=== PATIENT | female | born 1950 | race Native Hawaiian/Other Pacific Islander ===

== ENCOUNTER 2017-05-29 11:40 | Emergency (ER) | payer MEDICAID, MEDICARE ==
[2017-05-29 11:52] VITALS: BMI 26.6
[2017-05-29 11:57] VITALS: RESP 16; TEMP 98; O2SAT 98
[2017-05-29] MEDS ORDERED: Naproxen 550 mg Tab PO STA (12:05)
--- NOTE | 2017-05-29 12:08 | C.PDOC ---
History Of Present Illness 67 yr old female with PMHx of Parkinson's Disease, presents to the ER stating 5 days ago her son gave her a very tight hug and she heard a crack in her chest and now has pain in the right mid chest. Patient states the pain is constant and worsened with deep breathing. Denies any other injures, SOB, back pain, weakness or numbness. Time Seen by Provider: 05/29/17 11:55 Chief Complaint (Nursing): Rib Injury History Per: Patient History/Exam Limitations: no limitations Onset/Duration Of Symptoms: Days (5 days ago) Past Medical History Reviewed: Historical Data, Nursing Documentation, Vital Signs Vital Signs: Last Vital Signs Temp 98.0 F 05/29/17 11:54 Pulse 99 H 05/29/17 11:54 Resp 16 05/29/17 11:54 BP 162/93 H 05/29/17 11:54 Pulse Ox 98 05/29/17 12:54 - Medical History PMH: Parkinson's Disease Surgical History: Appendectomy Family History: States: No Known Family Hx - Social History Hx Alcohol Use: No Hx Substance Use: No - Immunization History Hx Tetanus Toxoid Vaccination: No Hx Influenza Vaccination: No Hx Pneumococcal Vaccination: No Review Of Systems Except As Marked, All Systems Reviewed And Found Negative. Cardiovascular: Positive for: Other ((+) Pain to the right mid chest. ) Respiratory: Negative for: Shortness of Breath Musculoskeletal: Negative for: Back Pain Neurological: Negative for: Weakness, Numbness Physical Exam - Physical Exam Appears: Non-toxic, No Acute Distress Skin: Warm, Dry, No Rash Head: Atraumatic, Normacephalic Eye(s): bilateral: Normal Inspection Oral Mucosa: Moist Neck: Normal ROM, No Midline Cervical Tenderness, No Paracervical Tenderness, Supple Chest: Symmetrical, Tenderness (Mild right mid chest wall tenderness. ), No Ecchymosis, No Subcutaneous Emphysema Cardiovascular: Rhythm Regular, No Friction Rub, No Murmur Respiratory: Normal Breath Sounds, No Rales, No Rhonchi, No Stridor, No Wheezing Gastrointestinal/Abdominal: Soft, No Tenderness, No Guarding, No Rebound Back: Normal Inspection, No CVA Tenderness, No Vertebral Tenderness, No Paraspinal Tenderness Extremity: Normal ROM, No Swelling Neurological/Psych: Oriented x3, Normal Speech, Normal Motor Gait: Steady ED Course And Treatment O2 Sat by Pulse Oximetry: 98 (RA ) Pulse Ox Interpretation: Normal - Radiology CXR: Viewed By Me, Read By Radiologist CXR Interpretation: Yes: No Acute Disease Medical Decision Making Medical Decision Making: PLAN: * CXR * Naproxen PO * Flexeril PO On re-exam, the patient reports improvement of symptoms. Lungs are CTA and heart is RRR. Abdomen is soft, non-tender and patient is tolerating PO well. Ambulatory in the ED with steady gait. Followup with the medical doctor within 1 -2 days. Return if worsened. Disposition - Disposition Referrals: Reggie Wright [Staff Provider] - Disposition: HOME/ ROUTINE Disposition Time: 13:08 Condition: GOOD Additional Instructions: Followup with the medical doctor within 1-2 days. Return if worsened. 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 - Scribe Statement The provider has reviewed the documentation as recorded by the Scribe Kiersten Ayon All medical record entries made by the Scribe were at my direction and personally dictated by me. I have reviewed the chart and agree that the record accurately reflects my personal performance of the history, physical exam, medical decision making, and the department course for this patient. I have also personally directed, reviewed, and agree with the discharge instructions and disposition.
[2017-05-29] MEDS ORDERED: Naproxen 550 mg Tab PO ONE (12:09)
--- NOTE | 2017-05-29 12:38 | RAD ---
HISTORY: chest pain, pleuritic pain COMPARISON: 08/11/2016 TECHNIQUE: Chest PA and lateral FINDINGS: LUNGS: No active pulmonary disease. PLEURA: No significant pleural effusion identified. No pneumothorax apparent. CARDIOVASCULAR: Normal. OSSEOUS STRUCTURES: No significant abnormalities. VISUALIZED UPPER ABDOMEN: Normal. OTHER FINDINGS: None. IMPRESSION: No active disease.
[2017-05-29 13:18] VITALS: BP 128/78; PULSE 78
== END 2017-05-29 13:18 | disposition home or self-care (01) ==
LOC: C.ER 11:40
DX: S20.211A Contusion of right front wall of thorax, initial encounter (principal); X58.XXXA Exposure to other specified factors, initial encounter; R07.81 Pleurodynia